=== PATIENT | male | born 1950 | race Caucasian/White ===

== ENCOUNTER 2021-01-02 09:57 | Observation (INO) | payer OTHER ==
[~2021-01-02] VITALS: Ht 182.9 cm; Wt 79.9 kg
[2021-01-02 13:15] VITALS: BP 154/77
[2021-01-02] MEDS ORDERED: ACETAMINOPHEN TAB 650MG DOSE (2X325MG) PO PRN (14:05)
[2021-01-02] MEDS ORDERED: ATOR1TAB19 PO (14:19)
[2021-01-02 14:42] LABS: HEMATOCRIT 44.5 % (42.0-52.0); HEMOGLOBIN 14.8 g/dl (13.5-17.5); MEAN CORPUSCULAR HEMOGLOBIN 29.4 pg (27.0-33.0); MEAN CORPUSCULAR HGB CONC 33.3 g/dl (32.0-36.5); MEAN CORPUSCULAR VOLUME 88.3 fl (80.0-96.0); PLATELET COUNT, AUTOMATED 290 10^3/uL (150-450); RED BLOOD COUNT 5.04 10^6/uL (4.30-6.10); WHITE BLOOD COUNT 8.8 10^3/uL (4.0-10.0)
[2021-01-02 14:54] LABS: INR 1.07; PROTHROMBIN TIME 14.1 SECONDS (12.5-14.3)
[2021-01-02 15:07] LABS: ALBUMIN 3.7 GM/DL (3.2-5.2); ALT/SGPT 40 U/L (12-78); BILIRUBIN,TOTAL 0.8 MG/DL (0.2-1.0); BLOOD UREA NITROGEN 12 MG/DL (7-18); CALCIUM LEVEL 9.1 MG/DL (8.8-10.2); CARBON DIOXIDE LEVEL 28 MEQ/L (21-32); CHLORIDE LEVEL 109 MEQ/L (98-107); CREATININE FOR GFR 0.75 MG/DL (0.70-1.30); GLOMERULAR FILTRATION RATE > 60.0 (>42); GLUCOSE, FASTING 88 MG/DL (70-100); POTASSIUM SERUM 4.1 MEQ/L (3.5-5.1); SODIUM LEVEL 141 MEQ/L (136-145); TOTAL PROTEIN 6.5 GM/DL (6.4-8.2)
[2021-01-02 15:30] VITALS: BP 148/72
--- NOTE | 2021-01-02 15:35 | HPEPDOC ---
[facility] Medical History & Physical Date of Admission January 02, 2021 Date of Service: January 02, 2021 Primary Care Physician: Ramírez Robles MD Attending Physician: RAJI BARONE MD History and Physical CHIEF COMPLAINT: Bright red blood per rectum HISTORY OF PRESENT ILLNESS: Patient is a 70 year old male with a past medical history significant for thrombosed hemorrhoids and hyperlipidemia who presented initially to [facility] with bright red blood per rectum. Patient had stated that Monday night he went to use the bathroom and noticed bright red blood in the toilet bowel. He stated that the blood was not mixed with his stool and that his stool was formed. He was unable to fully quantify the amount of blood but stated that it was may a few fluid ounces. He then noted another episode around 2AM this morning. Once again this was bright red blood not mixed with stool. He had a third episode around 5AM which prompted him to come to the [facility] ER. He stated that during these episodes he did not have any abdominal pain or cramping. He did state that the quantity of blood decreased with every bowel movement. At [facility] the patient has two more episodes of rectal bleeding at 9AM and 12PM, although he stated that with these episodes there was hardly any blood. His labs obtained at [place] demonstrated a hemoglobin of 15. BUN was not elevated. A CT abdomen and pelvis was obtained which demonstrated colonic diverticula and a 9mm lesion of the left lobe of the liver suggestive of hemangioma. Patient was vitally stable. He was transferred to [facility] further evaluation and management and possible GI/Surgical service. PAST MEDICAL HISTORY: 1. Hyperlipidemia 2. History of thrombosed hemorrhoids PAST SURGICAL HISTORY: 1. Colonoscopy > 10 years ago 2. Bilateral inguinal hernia repair 3. Cardiac Catheterization for heart murmur in 1969 SOCIAL HISTORY: Patient lives at home alone. He is independent with his ADLs. He is a never smoker. He denies alcohol use. He denies IV or illicit drug use. 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 FAMILY HISTORY: Patients mother is 97 with a history of HTN. His father in a car accident in 1974. He denies any family history of colorectal cancer ALLERGIES: Please see below. REVIEW OF SYSTEMS: CONSTITUTIONAL: Denies fevers, chills, unintentional weightloss or weightgain. Denies night sweats. HEENT: Denies dysphagia. Denies odynophagia. CARDIOVASCULAR: Denies chest pain, palpitations. Denies chest pressure. RESPIRATORY: Denies shortness of breath. Denies cough. Denies hemoptysis GASTROINTESTINAL: Denies abdominal pain. Denies nausea, vomiting, diarrhea or constipation. Admits to bright red blood per rectum GENITOURINARY: Denies dysuria. Denies increased frequency. Denies hematuria SKIN: Denies rashes or lesions MUSCULOSKELETAL: Denies muscle pain or weakness NEUROLOGICAL: Denies changes in gait or speech PSYCHIATRIC: Denies depression or anxiety ENDOCRINE: Denies heat intolerance or cold intolerance. Denies history of diabetes mellitus HEMATOLOGIC/LYMPHATIC: Denies easy bruising or bleeding. Denies history of DVT or PE HOME MEDICATIONS: Please see below. PHYSICAL EXAMINATION: VITAL SIGNS: Temperature 97.3, pulse 62, respiratory rate 18, blood pressure 154/77, pulse oximetry 98% on room air. GENERAL APPEARANCE: Awake, alert, and oriented. Appears in no acute distress. Ly ing comfortably in bed HEENT: Atraumatic, normocephalic. Eyes are nonicteric. Trachea is midline. Mucous membranes are pink and moist. CARDIOVASCULAR: Normal S1, S2. Regular rate and rhythm. 2/6 systolic ejection murmur. No clicks or rubs LUNGS: Clear vesicular breath sounds bilaterally. Symmetric chest expansion with good respiratory effort. No wheezes, rhonchi, or rales ABDOMEN: Soft, nondistended. nontender. Normoactive bowel sounds throughout EXTREMITIES: No edema. Full and equal pulses in bilateral upper and lower extremities NEUROLOGICAL: No focal neurological deficits PSYCHIATRIC: Mood and affect appear appropriate LABORATORY DATA: See below. IMAGING: CT abdomen and Pelvis obtained at [facility] report reviewed. Colonic diverticula. 9mm left liver lobe lesion likely hemangioma MICROBIOLOGY: Please see below. ASSESSMENT: Patient is a 70 year old male with a past medical history significant for hyperlipidemia who presented to [facility] as a transfer from [place] for gastrointestinal bleeding. Patient with bright red blood per rectum and hgb of 15. . PLAN: 1. Bright red blood per rectum likely 2/2 Lower GI bleed from hemorrhoids -Patient presented with a total of 5 episodes of bright red blood per rectum since last night. Patient had stated that the amount of blood has decreased and his most recent episode had hardly any blood. He has denied any blood mixed with stool. -CT abdomen and pelvis at [place] demonstrating colonic diverticula. Patients hemoglobin was 15. He was and remains hemodynamically stable and completely asymptomatic. Possible diverticular bleed although more likely hemorrhoidal. Patient does have a history of hemorrhoids in the past that were banded. -BUN is not elevated. Very unlikely to be an upper GI bleed unless he had a profuse upper GI bleed however would likely see hemodynamic instability and significant anemia in this setting. Therefore will not start Protonix -Will trend H&H. Most recent repeat was 14.8 -If patients hemoglobin remains stable and no further significant bleeding occurs then can discharge with follow-up and colonoscopy outpatient if indicated. -Clear liquids diet 2. 9mm Lesion on Left lobe of liver -Patient noted to have a 9mm lesion on the left lobe of his liver demonstrated on CT imaging at [place]. Likely a hemangioma. Patient can follow- up outpatient with his PCP for further work-up if warranted 3. HLD -Continue Atorvastatin 4. DVT prophylaxis -Teds and Sequentials due to possible GI bleed DISPOSITION: Likely discharge in 24 hours Home Medications Scheduled Atorvastatin Calcium (Atorvastatin Calcium) 10 Mg Tablet, 5 MG PO QHS Allergies Coded Allergies: No Known Allergies (Unverified , 01/02/21) GME ATTESTATION My faculty preceptor for this patient encounter was physically present during the encounter and was fully available. All aspects of the patient interview, examination, medical decision making process, and medical care plan development were reviewed and approved by the faculty preceptor. The faculty preceptor is aware and concurs with the plan as stated in the body of this note and will attest to such by his/her cosignature. ATTENDING NOTE I personally examined the patient and discussed his findings and studies and agree with the plan as detailed by the resident physician. Briefly, Mr. Harris is transferred from [place] for BRBPR c/w LGIB that we suspect is likely hemorrhoidal given the history of and the stable H/H. We will monitor his H/H and degree of bleeding overnight, and if he remains stable without a decline in H/H we will refer him to GI outpatient for elective colonscopy and if he briskly bleed we will consult surgery for an emergent colonoscopy. A-FIB/CHADSVASC A-FIB History Current/History of A-Fib/PAF?: No EMILY NICOLAS DO January 02, 2021 15:35 RAJI BARONE MD January 03, 2021 07:30
[2021-01-02 20:47] VITALS: BP 132/78
[2021-01-02] MEDS ORDERED: ATORVASTATIN 5MG PER 1/2 TABLET PO SCH (21:00)
[2021-01-02 22:19] LABS: HEMATOCRIT 41.9 % (42.0-52.0)
[2021-01-03 05:46] VITALS: BP 128/62
[2021-01-03 06:15] LABS: HEMATOCRIT 44.1 % (42.0-52.0); HEMOGLOBIN 14.9 g/dl (13.5-17.5); MEAN CORPUSCULAR HEMOGLOBIN 29.4 pg (27.0-33.0); MEAN CORPUSCULAR HGB CONC 33.8 g/dl (32.0-36.5); PLATELET COUNT, AUTOMATED 282 10^3/uL (150-450); RED BLOOD COUNT 5.07 10^6/uL (4.30-6.10); WHITE BLOOD COUNT 7.6 10^3/uL (4.0-10.0)
[2021-01-03 06:37] LABS: BLOOD UREA NITROGEN 10 MG/DL (7-18); CALCIUM LEVEL 9.3 MG/DL (8.8-10.2); CARBON DIOXIDE LEVEL 26 MEQ/L (21-32); CHLORIDE LEVEL 112 MEQ/L (98-107); CREATININE FOR GFR 0.78 MG/DL (0.70-1.30); GLOMERULAR FILTRATION RATE > 60.0 (>42); GLUCOSE, FASTING 95 MG/DL (70-100); POTASSIUM SERUM 4.3 MEQ/L (3.5-5.1); SODIUM LEVEL 143 MEQ/L (136-145)
--- NOTE | 2021-01-03 07:40 | DS.PDOC ---
Discharge Summary General Date of Admission January 02, 2021 at 13:00 Date of Discharge 01/03/2021 Attending Physician: RAJI BARONE MD Discharge Summary PROCEDURES PERFORMED DURING STAY: None ADMITTING DIAGNOSES: LGIB DISCHARGE DIAGNOSES: LGIB suspecting hemorrhoidal in origin Hyperlipidemia History of thrombosed hemorrhoids COMPLICATIONS/CHIEF COMPLAINT: Gi Bleed. HISTORY OF PRESENT ILLNESS: 70 year old M with a past medical history significant for thrombosed hemorrhoids and hyperlipidemia who presented initially to [facility] with bright red blood per rectum. Patient had stated that on Monday night he went to use the bathroom and noticed bright red blood in the toilet bowel. He stated that the blood was not mixed with his stool and that his stool was formed. He was unable to fully quantify the amount of blood but stated that it may have been a few fluid ounces. He then noted another episode around 2AM this morning. Once again this was bright red blood not mixed with stool. He had a third episode around 5AM which prompted him to go to the [facility] ER. He stated that during these episodes he did not have any abdominal pain or cramping. He did state that the quantity of blood decreased with every bowel movement. At [facility] the patient has two more episodes of rectal bleeding at 9AM and 12PM, although he stated that with these episodes there was hardly any blood. His labs obtained at [place] demonstrated a hemoglobin of 15. BUN was not elevated. A CT abdomen and pelvis was obtained which demonstrated colonic diverticula and a 9mm lesion of the left lobe of the liver suggestive of hemangioma. Patient was hemodynamically stable. He was transferred to [facility] further evaluation and management and possible GI/Surgical consultation. HOSPITAL COURSE: He arrived at [facility] hemodynamically stable with no physical complaints. His labs remained stable with a Hgb at discharge of 15. He had 2 bowel movement that had blood streaks but no alexander bleeding like prior. I am now discharging him home with referral to gastroenterology for potential colonoscopy for LGIB. Of note, his last colonoscopy was 10 years ago and was unremarkable. DISCHARGE MEDICATIONS: Please see below. ALLERGIES: Please see below. PHYSICAL EXAMINATION ON DISCHARGE: VITAL SIGNS: Please see below. GENERAL APPEARANCE: Awake, alert, and oriented. Appears in no acute distress. Lying comfortably in bed HEENT: Atraumatic, normocephalic. Eyes are nonicteric. Trachea is midline. Mucous membranes are pink and moist. CARDIOVASCULAR: Normal S1, S2. Regular rate and rhythm. 2/6 systolic ejection murmur. No clicks or rubs LUNGS: Clear vesicular breath sounds bilaterally. Symmetric chest expansion with good respiratory effort. No wheezes, rhonchi, or rales ABDOMEN: Soft, nondistended. nontender. Normoactive bowel sounds throughout EXTREMITIES: No edema. Full and equal pulses in bilateral upper and lower extremities NEUROLOGICAL: No focal neurological deficits PSYCHIATRIC: Mood and affect appear appropriate LABORATORY DATA: Please see below. IMAGING: CT abdomen and Pelvis obtained at [facility] report reviewed. Colonic diverticula. 9mm left liver lobe lesion likely hemangioma PROGNOSIS: Good ACTIVITY: As tolerated DIET: Regular DISCHARGE PLAN: Home with close PCP follow up and GI referral DISPOSITION: home with GI referral DISCHARGE INSTRUCTIONS: Please call to schedule an appointment with your PCP within the next 7d. We have referred you GI for colonoscopy . ITEMS TO FOLLOWUP ON ON OUTPATIENT: LGIB DISCHARGE CONDITION: Stable TIME SPENT ON DISCHARGE: 35 minutes. Vital Signs/I&Os Vital Signs Date Time Temp Pulse Resp B/P (MAP) Pulse Ox O2 Delivery O2 Flow Rate FiO2 01/03/21 05:46 99.1 66 16 128/62 (84) 95 Room Air I&O- Last 24 Hours up to 6 AM 01/03/21 06:00 Intake Total 480 ml Output Total 0 ml Balance 480 ml Laboratory Data Labs 24H Laboratory Tests 2 01/02/21 14:32: Nucleated Red Blood Cells % (auto) 0.0, Prothrombin Time 14.1H, Prothromb Time International Ratio 1.07, Anion Gap 4L, Glomerular Filtration Rate > 60.0, Calcium Level 9.1, Total Bilirubin 0.8, Aspartate Amino Transf (AST/SGOT) 23, Alanine Aminotransferase (ALT/SGPT) 40, Alkaline Phosphatase 50, Total Protein 6.5, Albumin 3.7, Albumin/Globulin Ratio 1.3 01/03/21 05:52: Nucleated Red Blood Cells % (auto) 0.0, Anion Gap 5L, Glomerular Filtration Rate > 60.0, Calcium Level 9.3 CBC/BMP Laboratory Tests 01/02/21 14:32 01/02/21 22:01 01/03/21 05:52 Discharge Medications Scheduled Atorvastatin Calcium (Atorvastatin Calcium) 10 Mg Tablet, 5 MG PO QHS, (Reported) Allergies Coded Allergies: No Known Allergies (Unverified , 01/02/21) RAJI BARONE MD January 03, 2021 07:40
== END 2021-01-03 09:35 | disposition home or self-care (01) ==
LOC: M PCU 13:00 → M MS5PR 15:27
PROVIDERS: ADMIT Internal Medicine; ATTEND Internal Medicine
DX: K92.2 Gastrointestinal hemorrhage, unspecified (principal); E78.5 Hyperlipidemia, unspecified; Z87.19 Personal history of other diseases of the digestive system; K57.30 Diverticulosis of large intestine without perforation or abscess without bleeding; K76.9 Liver disease, unspecified; Z79.899 Other long term (current) drug therapy